=== PATIENT | female | born 2000 | race Two or more races ===

== ENCOUNTER 2019-05-10 16:35 | Emergency (ER) | payer OTHER, SELFPAY ==
[2019-05-10 16:36] VITALS: BP 106/72; PULSE 67; RESP 18; TEMP 37.3; O2SAT 98; BMI 26.4
--- NOTE | 2019-05-10 17:10 | ED_ITS ---
[facility] [place]: Screen for STD (sexually transmitted disease) Disposition: Home, Self-Care Condition on Discharge: Good Instructions: Chlamydia: The Silent STD, Chlamydia, DI for Chlamydia, DI for Gonorrhea Additional Instructions: Follow up with PCP in 3-5 days for results of STD testing and further treatment if needed Avoid sexual activitiy until results back and infection cleared Return if needed Straight to ER if any life threatening symptoms Referrals: Provider,Referral, MD [Primary Care Provider] - As needed Time of Disposition: 17:15 Medical Decision Making - Ramon Inquiry Pt receiving controlled substance: No Ramon was queried for this patient: No Vital Signs: 05/10/19 16:36 Temperature 99.1 F Temperature Source Oral Pulse Rate [Radial] 67 Respiratory Rate 18 Blood Pressure [Right Arm] 106/72 L Blood Pressure Mean [Right Arm] 83 Blood Pressure Source [Right Arm] Automatic Cuff Blood Pressure Position [Right Arm] Sitting 02 Sat by Pulse Oximetry 98 Oxygen Delivery Method Room Air [facility] [place] - General Stated complaint: STD testing Time Seen by Provider: 05/10/19 17:10 Mode of Arrival: Ambulatory Source of Information: Patient Limitations: No Limitations Description of Symptoms (Recalled from Triage Doc. by RN): CHLAMYDIA/GONORRHEA TESTING HEENT Symptoms (Recalled from RN notes): No Resp Symptoms (Recalled from RN notes): No Skin Symptoms (Recalled from RN notes): No MS Symptoms (Recalled from RN notes): No Functional Status (Recalled from RN notes): WNL - History of Present Illness Provider Complaint: Patient states that she was recently dx with Chlamydia and Gonorrhea and was treated by PCP and she came in today wanting to have the pee test to see if the medication got rid of the infection like she was advised to do and follow up - Related Data Allergies Allergy/AdvReac Type Severity Reaction Status Date / Time No Known Allergies Allergy Verified 05/10/19 16:57 - Worker's Comp Is this a Worker's Comp case?: No [facility] History - Hepatitis A Screen Drug use history?: No High risk sexual behaviors?: No History of sexually transmitted infection?: No Currently employed?: No Childcare worker?: No Do you have indoor plumbing?: Yes Do you have electricity?: Yes Attestation statement:: This patient has been screened for Hepatitis A risk factors. I have reviewed the patient's past medical history: Yes - Social History Educational Level: Completed High School Alcohol Intake: never Occupational Status: other ROS Obtained: Yes All systems reviewed & no additional complaints, Yes Systems reviewed as appropriate & no additional complaints Physical Exam - General General appearance: alert, in no apparent distress - Respiratory Respiratory exam: Present: normal lung sounds bilaterally. Absent: respiratory distress - Cardiovascular Cardiovascular exam: Present: regular rate, normal rhythm. Absent: JVD - Abdominal Exam Abdominal exam: Present: soft, normal bowel sounds. Absent: distention, tenderness, guarding - Neurological Exam Neurological exam: Present: alert, oriented X3
[2019-05-10 17:24] VITALS: BP 106/72; PULSE 67; RESP 18; TEMP 37.3; O2SAT 98
[2019-05-10 17:34] LABS: Urine Pregnancy, HCG Qual. Negative (Negative)
[2019-05-14 07:15] LABS: Neisseria gonorrhoeae, NAA Negative (Negative)
== END 2019-05-10 17:26 | disposition home or self-care (01) ==
PROVIDERS: Emergency Provider Nurse Practitioner
DX: Z11.3 Encounter for screening for infections with a predominantly sexual mode of transmission (principal)
CPT/HCPCS: 81025; 87491; 87591; 99201

== ENCOUNTER → 2019-12-19 17:19 | Outpatient (CLI) | payer OTHER, SELFPAY ==
[2019-12-25 19:42] LABS: Neisseria gonorrhoeae, NAA Negative (Negative)
== END ==
PROVIDERS: Visit Provider Obstetrics & Gynecology
DX: Z72.51 High risk heterosexual behavior (principal)
CPT/HCPCS: 87491; 87591

== ENCOUNTER → 2020-01-07 16:33 | Outpatient (CLI) | payer OTHER, SELFPAY ==
[2020-01-10 10:25] LABS: Neisseria gonorrhoeae, NAA Negative (Negative)
== END ==
PROVIDERS: Visit Provider Obstetrics & Gynecology
DX: Z11.3 Encounter for screening for infections with a predominantly sexual mode of transmission (principal)
CPT/HCPCS: 87491; 87591

== ENCOUNTER 2020-01-15 13:12 | Emergency (ER) | payer OTHER, SELFPAY ==
--- NOTE | 2020-01-15 13:59 | HMH.EDUTC ---
[facility] [place]ression: Sinusitis Qualifiers: Sinusitis location: unspecified location Chronicity: acute Recurrence: non-recurrent Qualified Code(s): J01.90 - Acute sinusitis, unspecified Pharyngitis Qualifiers: Pharyngitis/tonsillitis etiology: unspecified etiology Qualified Code(s): J02.9 - Acute pharyngitis, unspecified Disposition: Home, Self-Care Condition on Discharge: Good Instructions: Sinusitis, DI for Sinusitis Additional Instructions: Drink plenty of fluids. Take tylenol or ibuprofen for pain or fever. Take the medications as directed. Follow up with your regular doctor. GO TO THE ER FOR ANY WORSENING SYMPTOMS Prescriptions: Brompheniramine/Pseudoephed/Dm [Bromfed Dm Cough Syrup] 5 ml PO Q6HP PRN #240 syrup PRN Reason: Cough Transmission Status: Received by [id number] predniSONE [Deltasone 10mg tablet] 10 mg PO BID 3 Days #6 tab Transmission Status: Received by [id number] Azithromycin [Z-Naseem 250mg Tab*] 250 mg PO UD DOSE PK #6 tab Transmission Status: Received by [id number] Referrals: Roberto Carlos Nelson MD [Primary Care Provider] - Forms: Work/School Release Time of Disposition: 14:22 Medical Decision Making - Medical Records Medical records reviewed: No: I reviewed the patient's medical records. - Ramon Inquiry Pt receiving controlled substance: No Vital Signs: 01/15/20 14:07 01/15/20 14:38 Temperature 99.2 F 99.2 F Temperature Source Oral Pulse Rate 95 H Pulse Rate [Left] 95 H Respiratory Rate 17 17 Blood Pressure 126/73 Blood Pressure [Right Arm] 126/7 L Blood Pressure Mean [Right Arm] 46 Blood Pressure Source [Right Arm] Automatic Cuff Blood Pressure Position [Right Arm] Sitting 02 Sat by Pulse Oximetry 98 Oxygen Delivery Method Room Air Room Air - Lab Data Lab results reviewed: Yes: I reviewed the patient's lab results. [facility] [place] - General Stated complaint: congestion Time Seen by Provider: 01/15/20 13:59 - History of Present Illness Provider Complaint: She c/o 3 days of worsening sinus congestion, sinus drainage, and sore throat. She denies any known exposure to covid. She was tested for covid 2 days ago and it was negative. - Related Data Home Medications Medication Instructions Recorded Confirmed levonorgestrel 20 mcg/24 hours (5 INTRAUTERI 11/21/19 yrs) 52 mg intrauterine device Previous Rx's Medication Instructions Recorded clindamycin HCl 300 mg capsule 300 mg PO BID 7 Days #14 cap 01/13/20 Azithromycin [Z-Naseem 250mg Tab*] 250 mg PO UD DOSE PK #6 tab 01/15/20 Brompheniramine/Pseudoephed/Dm 5 ml PO Q6HP PRN #240 syrup 01/15/20 [Bromfed Dm Cough Syrup] predniSONE [Deltasone 10mg tablet] 10 mg PO BID 3 Days #6 tab 01/15/20 Allergies Allergy/AdvReac Type Severity Reaction Status Date / Time No Known Allergies Allergy Verified 01/07/20 11:09 [facility] History - Hepatitis A Screen Attestation statement:: This patient has been screened for Hepatitis A risk factors. I have reviewed the patient's past medical history: Yes Amputation: No Fractures: No Comment: wisdom teeth - Social History Smoking Status: Never smoker Alcohol Intake: never Substance Use Type: denies use Occupational Status: other, student Family Hx:: No significant family history ROS Obtained: Yes All systems reviewed & no additional complaints - Constitutional Constitutional: Reports chills, Denies fever(s), Reports poor appetite, Reports malaise - Eyes Eyes: Denies eye discharge - ENT Ears, Nose, Mouth, and Throat: Reports as per HPI - Cardiovascular Cardiovascular: Denies chest pain - Respiratory Respiratory: No chest congestion, Yes cough, No dyspnea, No stridor, No wheezing Physical Exam - General General appearance: alert, in no apparent distress - Head Head exam: atraumatic, normocephalic, normal inspection - Eye Eye exam: Present: normal appearance, PERRL, EOMI
[2020-01-15 14:07] VITALS: BP 126/7; PULSE 95; RESP 17; TEMP 37.3; O2SAT 98; BMI 27.8
[2020-01-15 14:38] VITALS: BP 126/73; PULSE 95; RESP 17; TEMP 37.3; O2SAT 98
== END 2020-01-15 14:38 | disposition home or self-care (01) ==
PROVIDERS: Emergency Provider Nurse Practitioner Family; PCP Emergency Medicine
DX: J01.90 Acute sinusitis, unspecified (principal); J02.9 Acute pharyngitis, unspecified
CPT/HCPCS: 99201